=== PATIENT | female | born 1995 | race American Indian/Alaskan Native ===

== ENCOUNTER 2018-07-01 19:49 | Emergency (ER) | payer SELFPAY ==
[2018-07-01 19:55] VITALS: BP 116/60
== END 2018-07-01 22:00 | disposition left against medical advice (07) ==
LOC: ED 19:49
DX: N89.8 Other specified noninflammatory disorders of vagina (principal); Z53.21 Procedure and treatment not carried out due to patient leaving prior to being seen by health care provider
CPT/HCPCS: 87086